=== PATIENT | male | born 1965 | race Caucasian/White ===

== ENCOUNTER → 2021-01-20 | Outpatient (CLI) | payer OTHER | LOC: CARD 13:00 | PROVIDERS: ATTEND Internal Medicine Cardiovascular Disease | DX: I51.7 Cardiomegaly (principal); I25.5 Ischemic cardiomyopathy; I34.0 Nonrheumatic mitral (valve) insufficiency | CPT/HCPCS: 93306 ==

== ENCOUNTER → 2021-02-05 | Outpatient (CLI) | payer OTHER ==
[2021-02-05 10:42] LABS: ALANINE AMINOTRANSFERASE 17 U/L (0-55); ALBUMIN 4.4 GM/DL (3.2-4.5); ALKALINE PHOSPHATASE 69 U/L (40-136); BILIRUBIN,TOTAL 0.6 MG/DL (0.1-1.0); BUN/CREATININE RATIO 17; CARBON DIOXIDE 25 MMOL/L (21-32); CHLORIDE 105 MMOL/L (98-107); CHOLESTEROL 114 MG/DL (< 200); CREATININE SERUM 0.98 MG/DL (0.60-1.30); GFR ESTIMATED > 60; GLUCOSE 112 MG/DL (70-105); HDL CHOLESTEROL 33 MG/DL (40-60); POTASSIUM 4.2 MMOL/L (3.6-5.0); SODIUM 138 MMOL/L (135-145); TOTAL PROTEIN 7.3 GM/DL (6.4-8.2); TRIGLYCERIDES 180 MG/DL (<150); VLDL CHOLESTEROL 36 MG/DL (5-40)
== END ==
LOC: LAB 09:21
PROVIDERS: ATTEND Internal Medicine Cardiovascular Disease
DX: E78.49 Other hyperlipidemia (principal)
CPT/HCPCS: 36415; 80053; 80061

== ENCOUNTER 2021-10-20 19:02 | Emergency (ER) | payer OTHER ==
[~2021-10-20] VITALS: Ht 182.9 cm; Wt 81.6 kg
[2021-10-20 19:05] VITALS: BP 97/61
[2021-10-20 19:24] LABS: BASOPHILS % (AUTO) 0 % (0-10); EOSINOPHILS % (AUTO) 1 % (0-10); HEMATOCRIT 41 % (40-54); HEMOGLOBIN 13.5 g/dL (13.3-17.7); LYMPHOCYTES # (AUTO) 1.9 10^3/uL (1.0-4.0); LYMPHOCYTES % (AUTO) 39 % (12-44); MEAN CORPUSCULAR HEMOGLOBIN 31 pg (25-34); MEAN CORPUSCULAR HGB CONC 33 g/dL (32-36); MEAN CORPUSCULAR VOLUME 95 fL (80-99); MEAN PLATELET VOLUME 10.2 fL (9.0-12.2); MONOCYTES # (AUTO) 0.7 10^3/uL (0.0-1.0); MONOCYTES % (AUTO) 15 % (0-12); NEUTROPHILS # (AUTO) 2.2 10^3/uL (1.8-7.8); NEUTROPHILS % (AUTO) 45 % (42-75); PLATELET COUNT 154 10^3/uL (130-400); WHITE BLOOD COUNT 4.9 10^3/uL (4.3-11.0)
--- NOTE | 2021-10-20 19:26 | ED General ---
General Chief Complaint: Dizziness/Syncope Stated Complaint: SYNCOPE Source of Information: Patient Exam Limitations: No Limitations (SHER PASCAL APRN) History of Present Illness Date Seen by Provider: Oct 20, 2021 Time Seen by Provider: 19:23 Initial Comments To ER with a syncopal event. He has been feeling under the weather today, general malaise. He stood up from the table, then felt like he was going to pass out so he started walking towards the door to unlock it. He then became very weak unable to stand up and collapsed to the floor. He does not think that he ever completely lost consciousness. With time from standing up from the table to syncope was about 1 minute. He was very sweaty at the time he states. He denies any palpitations or chest pain or nausea. He denies fevers or chills. He has a history of ischemic dilated cardiomyopathy with most recent echocardiogram in January 2021 showing ejection fraction of 30 to 35%. He does have a defibrillator. At this time he feels okay. EMS initiated IV fluids in route to the hospital. His initial blood pressure was in the 80s, currently 110/96. Timing/Duration: 1-2 Days Severity: Moderate Associated Systoms: Denies Symptoms (SHER PASCAL APRN) Allergies and Home Medications Allergies Coded Allergies: No Known Drug Allergies (Unverified , 10/20/21) Patient Home Medication List Home Medication List Reviewed: Yes (SHER PASCAL APRN) Aspirin (Aspirin) 81 Mg Tab.chew, 81 MG PO DAILY, (Reported) Entered as Reported by: TAMIA BYRNE on 10/20/211950 Last Action: New Order Atorvastatin Calcium (Atorvastatin Calcium) 80 Mg Tablet, 80 MG PO DAILY, (Reported) Entered as Reported by: TAMIA BYRNE on 10/20/211950 Last Action: New Order Carvedilol (Coreg) 6.25 Mg Tablet, 6.25 MG PO BID, (Reported) Entered as Reported by: TAMIA BYRNE on 10/20/211950 Last Action: New Order Clopidogrel Bisulfate (Plavix) 75 Mg Tablet, 75 MG PO DAILY, (Reported) Entered as Reported by: TAMIA BYRNE on 10/20/211950 Last Action: New Order Furosemide (Lasix) 20 Mg Tablet, 20 MG PO DAILY, (Reported) Entered as Reported by: TAMIA BYRNE on 10/20/211950 Last Action: New Order Levothyroxine Sodium (Synthroid) 50 Mcg Tablet, 50 MCG PO DAILY, (Reported) Entered as Reported by: TAMIA BYRNE on 10/20/211950 Last Action: New Order Metformin HCl (Metformin HCl ER) 1,000 Mg Tab.er.24, 1,000 MG PO BID, (Reported) Entered as Reported by: TAMIA BYRNE on 10/20/211948 Last Action: New Order Sacubitril/Valsartan (Entresto 24 mg-26 mg Tablet) 1 Each Tablet, 1 TAB PO BID, (Reported) Entered as Reported by: TAMIA BYRNE on 10/20/211950 Last Action: New Order Spironolactone (Spironolactone) 25 Mg Tablet, 25 MG PO DAILY, (Reported) Entered as Reported by: TAMIA BYRNE on 10/20/211948 Last Action: New Order Review of Systems Review of Systems Constitutional: see HPI EENTM: see HPI Respiratory: no symptoms reported Cardiovascular: see HPI Genitourinary: no symptoms reported Musculoskeletal: no symptoms reported Skin: no symptoms reported Psychiatric/Neurological: No Symptoms Reported Hematologic/Lymphatic: No Symptoms Reported Immunological/Allergic: no symptoms reported (SHER PASCAL APRN) Physical Exam Vital Signs Vital Signs - First Documented 10/20/21 19:05 Temp 36.9 Pulse 67 Resp 18 B/P (MAP) 97/61 (73) Pulse Ox 97 O2 Delivery Room Air (NOY MENDEZA K DO) Vital Signs Capillary Refill : (SHER PASCAL APRN) Height, Weight, BMI Height: '" Weight: lbs. oz. kg; BMI Method: General Appearance: No Apparent Distress, WD/WN Eyes: Bilateral Eye Normal Inspection, Bilateral Eye PERRL, Bilateral Eye EOMI Respiratory: No Accessory Muscle Use, No Respiratory Distress Gastrointestinal: Non Tender, Soft Extremity: Normal Capillary Refill, Normal Inspection Neurologic/Psychiatric: Alert, Oriented x3 Skin: Normal Color, Warm/Dry (SHER PASCAL APRN) Progress/Results/Core Measures Suspected Sepsis SIRS Temperature: Pulse: Respiratory Rate: Laboratory Tests 10/20/21 19:11: White Blood Count 4.9 Blood Pressure / Mean: Laboratory Tests 10/20/21 19:11: Creatinine 1.35H, INR Comment 0.9, Platelet Count 154, Total Bilirubin 0.4 (SHER PASCAL APRN) Results/Orders Lab Results Laboratory Tests Test 10/20/21 19:11 10/20/21 21:28 Range/Units White Blood Count 4.9 4.3-11.0 10^3/uL Red Blood Count 4.34 4.30-5.52 10^6/uL Hemoglobin 13.5 13.3-17.7 g/dL Hematocrit 41 40-54 % Mean Corpuscular Volume 95 80-99 fL Mean Corpuscular Hemoglobin 31 25-34 pg Mean Corpuscular Hemoglobin Concent 33 32-36 g/dL Red Cell Distribution Width 12.4 10.0-14.5 % Platelet Count 154 130-400 10^3/uL Mean Platelet Volume 10.2 9.0-12.2 fL Immature Granulocyte % (Auto) 0 % Neutrophils (%) (Auto) 45 42-75 % Lymphocytes (%) (Auto) 39 12-44 % Monocytes (%) (Auto) 15 H 0-12 % Eosinophils (%) (Auto) 1 0-10 % Basophils (%) (Auto) 0 0-10 % Neutrophils # (Auto) 2.2 1.8-7.8 10^3/uL Lymphocytes # (Auto) 1.9 1.0-4.0 10^3/uL Monocytes # (Auto) 0.7 0.0-1.0 10^3/uL Eosinophils # (Auto) 0.0 0.0-0.3 10^3/uL Basophils # (Auto) 0.0 0.0-0.1 10^3/uL Immature Granulocyte # (Auto) 0.0 0.0-0.1 10^3/uL Prothrombin Time 12.7 12.2-14.7 SEC INR Comment 0.9 0.8-1.4 Activated Partial Thromboplast Time 29 24-35 SEC D-Dimer 0.49 0.00-0.49 UG/ML Sodium Level 138 135-145 MMOL/L Potassium Level 4.1 3.6-5.0 MMOL/L Chloride Level 103 98-107 MMOL/L Carbon Dioxide Level 23 21-32 MMOL/L Anion Gap 12 5-14 MMOL/L Blood Urea Nitrogen 17 7-18 MG/DL Creatinine 1.35 H 0.60-1.30 MG/DL Estimat Glomerular Filtration Rate 54 BUN/Creatinine Ratio 13 Glucose Level 134 H 70-105 MG/DL Calcium Level 8.8 8.5-10.1 MG/DL Corrected Calcium 8.6 8.5-10.1 MG/DL Magnesium Level 2.0 1.6-2.4 MG/DL Total Bilirubin 0.4 0.1-1.0 MG/DL Aspartate Amino Transf (AST/SGOT) 22 5-34 U/L Alanine Aminotransferase (ALT/SGPT) 26 0-55 U/L Alkaline Phosphatase 69 40-136 U/L Myoglobin 67.4 10.0-92.0 NG/ML Troponin I 0.059 H 0.053 H <0.028 NG/ML B-Type Natriuretic Peptide 23.2 <100.0 PG/ML Total Protein 7.4 6.4-8.2 GM/DL Albumin 4.3 3.2-4.5 GM/DL Influenza Type A (RT-PCR) Not Detected Not Detecte Influenza Type B (RT-PCR) Not Detected Not Detecte SARS-CoV-2 RNA (RT-PCR) Detected H Not Detecte (NOREEN MENDEZ DO) Vital Signs/I&O 10/20/21 10/20/21 19:05 19:05 Temp 36.9 Pulse 67 Resp 18 B/P (MAP) 97/61 (73) Pulse Ox 97 97 O2 Delivery Room Air Room Air 10/21/21 00:00 Intake Total 1000 ml Balance 1000 ml (NOREEN MENDEZ DO) Vital Signs/I&O Capillary Refill : (SHER PASCAL APRN) Departure Communication (Admissions) NAME: [facility] REC#: [id number] PT STATUS: REG ER : 1965 PHYSICIAN: SHER PASCAL APRN ADMIT DATE: 10/20/21/ER Draft Date of Exam:10/20/21 CT HEAD/CERVICAL SPINE WO PROCEDURE: CT head and CT cervical spine without contrast. TECHNIQUE: Multiple contiguous axial images were obtained through the brain and cervical spine without the use of intravenous contrast. Sagittal and coronal reformations through the cervical spine were then performed. Auto Exposure Controls were utilized during the CT exam to meet ALARA standards for radiation dose reduction. INDICATION: Syncope. Covid positive patient. Pain. COMPARISON: None. FINDINGS: CT HEAD: There is a fairly well-circumscribed 8 mm hypodensity within the lateral margins of the left cerebellar hemisphere, superiorly. Findings could be on the basis of old small infarct. There is otherwise no suspicious area of loss of normal kaufman-white matter junction differentiation to suggest evolving acute infarct. Ventricles and cortical sulci are age-appropriate. There is no mass effect or midline shift. No intra-axial or extra-axial intracranial hemorrhage is seen. No other extra-axial masses or fluid collections are identified. No focal calvarial lesions are seen. There is partial opacification of the mastoid air cells on the right. Paranasal sinuses show mild scattered mucosal thickening as well. CT CERVICAL SPINE: Evaluation of static alignment shows straightening with slight reversal of normal lordotic curvature. Findings may relate to patient positioning, as well as underlying spasm. There is no significant anterolisthesis or retrolisthesis. There is no evidence of jumped facets. Vertebral body heights are maintained. There is no acute fracture. No bony fragments are seen within the spinal canal. Mild multilevel degenerative changes are noted. Prevertebral and paravertebral soft tissue structures are unremarkable. Included portions of the lung apices show no additional acute abnormalities. Note is also made of calcified carotid atherosclerosis. IMPRESSION: 1. No acute intracranial abnormality. No CT evidence of acute infarct, mass or hemorrhage. 2. Possible old small lacunar infarct of the left cerebellar hemisphere. 3. No acute fracture or dislocation of the cervical spine. Dictated on workstation # [id number] Dict: 10/20/212111 Trans: 10/20/212119 [facility] [id number] Interpreted by: RAMIRO JONES MD Electronically signed by: (SHER PASCAL APRN) Impression Primary Impression: Syncope Disposition: HOME, SELF-CARE Condition: Stable Departure-Patient Inst. Decision time for Depature: 22:08 (SHER PASCAL APRN) Referrals: NO,LOCAL PHYSICIAN (PCP/Family) Primary Care Physician Patient Instructions: COVID-19 (DC), Syncope (Fainting) (DC) Add. Discharge Instructions: 1. Medication as directed. Follow-up with your doctor next week. Quarantine for 5 days at home and then additional 5 days wearing a mask. All discharge instructions reviewed with patient and/or family. Voiced understanding. ATTENDING PHYSICIAN NOTE: I WAS PHYSICALLY PRESENT ER PHYSICIAN WHEN THIS PATIENT WAS IN ER, BUT I WAS NOT INVOLVED IN ANY DECISION MAKING OR ANY CARE OF THIS PATIENT. (NOREEN MENDEZ DO) SHER PASCAL APRN Oct 20, 2021 19:26 NOREEN MENDEZ DO Oct 21, 2021 03:16
[2021-10-20 19:45] LABS: INR 0.9 (0.8-1.4); PROTHROMBIN TIME PATIENT 12.7 SEC (12.2-14.7)
[2021-10-20] MEDS ORDERED: METF-479 PO (19:49)
[2021-10-20] MEDS ORDERED: SPIR25TA5 PO (19:49)
[2021-10-20] MEDS ORDERED: FURO-125 PO (19:51)
[2021-10-20] MEDS ORDERED: CARV6.25 PO (19:51)
[2021-10-20] MEDS ORDERED: SACU1TAB2 PO (19:51)
[2021-10-20] MEDS ORDERED: CLOP75TA69 PO (19:51)
[2021-10-20] MEDS ORDERED: LEVO50TA PO (19:51)
[2021-10-20] MEDS ORDERED: ASPI-999 PO (19:51)
[2021-10-20] MEDS ORDERED: ATOR80TA76 PO (19:51)
[2021-10-20 19:53] LABS: ALBUMIN 4.3 GM/DL (3.2-4.5); BILIRUBIN,TOTAL 0.4 MG/DL (0.1-1.0); CALCIUM 8.8 MG/DL (8.5-10.1); CREATININE SERUM 1.35 MG/DL (0.60-1.30); POTASSIUM 4.1 MMOL/L (3.6-5.0); TOTAL PROTEIN 7.4 GM/DL (6.4-8.2)
--- NOTE | 2021-10-20 19:59 | Diagnostic Imaging Report ---
EXAM: Chest 1 view, AP/PA only INDICATION: Syncope. COMPARISON: None. FINDINGS: Sternotomy. Cardiac pacer. Normal heart size and central pulmonary vascularity. No focal pulmonary opacity. No pleural effusion or pneumothorax. No acute osseous findings. IMPRESSION: No acute cardiopulmonary findings. Dictated by: Dictated on workstation # [id number]
--- NOTE | 2021-10-20 21:21 | Diagnostic Imaging Report ---
PROCEDURE: CT head and CT cervical spine without contrast. TECHNIQUE: Multiple contiguous axial images were obtained through the brain and cervical spine without the use of intravenous contrast. Sagittal and coronal reformations through the cervical spine were then performed. Auto Exposure Controls were utilized during the CT exam to meet ALARA standards for radiation dose reduction. INDICATION: Syncope. Covid positive patient. Pain. COMPARISON: None. FINDINGS: CT HEAD: There is a fairly well-circumscribed 8 mm hypodensity within the lateral margins of the left cerebellar hemisphere, superiorly. Findings could be on the basis of old small infarct. There is otherwise no suspicious area of loss of normal kaufman-white matter junction differentiation to suggest evolving acute infarct. Ventricles and cortical sulci are age-appropriate. There is no mass effect or midline shift. No intra-axial or extra-axial intracranial hemorrhage is seen. No other extra-axial masses or fluid collections are identified. No focal calvarial lesions are seen. There is partial opacification of the mastoid air cells on the right. Paranasal sinuses show mild scattered mucosal thickening as well. CT CERVICAL SPINE: Evaluation of static alignment shows straightening with slight reversal of normal lordotic curvature. Findings may relate to patient positioning, as well as underlying spasm. There is no significant anterolisthesis or retrolisthesis. There is no evidence of jumped facets. Vertebral body heights are maintained. There is no acute fracture. No bony fragments are seen within the spinal canal. Mild multilevel degenerative changes are noted. Prevertebral and paravertebral soft tissue structures are unremarkable. Included portions of the lung apices show no additional acute abnormalities. Note is also made of calcified carotid atherosclerosis. IMPRESSION: 1. No acute intracranial abnormality. No CT evidence of acute infarct, mass or hemorrhage. 2. Possible old small lacunar infarct of the left cerebellar hemisphere. 3. No acute fracture or dislocation of the cervical spine. Dictated by: Dictated on workstation # [id number]
== END 2021-10-20 22:33 | disposition home or self-care (01) ==
LOC: EDUNIT# 19:02 → ER 19:03
DX: U07.1 COVID-19 (principal); R55 Syncope and collapse
CPT/HCPCS: 36415; 70450; 71045; 72125; 80053; 83735; 83874; 83880; 84484; 85025; 85379; 85610; 85730; 87636; 93005; 93041

== ENCOUNTER → 2023-08-16 | Outpatient (CLI) | payer OTHER ==
[~2023-08-16] MED LIST: ASPI-999 PO; ATOR80TA76 PO; CARV6.25 PO; CLOP-31 PO; FURO-125 PO; LEVO50TA PO; METF-479 PO; SACU1TAB2 PO; SPIR25TA5 PO
== END ==
LOC: CARD 08:19
PROVIDERS: ATTEND Nurse Practitioner Family
DX: I34.0 Nonrheumatic mitral (valve) insufficiency (principal); I35.1 Nonrheumatic aortic (valve) insufficiency; I25.5 Ischemic cardiomyopathy
CPT/HCPCS: 93306